=== PATIENT | male | born 1960 | race Caucasian/White ===

== ENCOUNTER 2016-11-05 23:10 | Emergency (ER) | payer OTHER ==
[~2016-11-05] VITALS: Ht 182.9 cm; Wt 85.0 kg
[~2016-11-05 23:10] MED LIST: BACT2OIN TOP; BACT800T5 PO
[2016-11-05 23:16] VITALS: BP 135/70; PULSE 91; RESP 16; TEMP 97.9; O2SAT 97
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
--- NOTE | 2016-11-06 01:10 | RADRPT ---
EXAM DATE/TIME: 11/06/2016 00:58 [place] COMPARISON: No previous studies available for comparison. INDICATIONS : Pt with laceration to nose. MEDICAL HISTORY : None. SURGICAL HISTORY : None. ENCOUNTER: Initial ACUITY: 1 day PAIN SCORE: Non-responsive. LOCATION: Bilateral nasal FINDINGS: Lateral and Mcintosh views of the nasal bones demonstrate no evidence of displaced fracture. There is no significant soft tissue swelling. The infraorbital rims are intact. CONCLUSION: Unremarkable examination of the nasal bones. There is some prominence of the suture at the base of th e nasal bone could be a tiny nondisplaced fracture, will heal without sequelae Eb Moore MD on November 06, 2016 at 1:08 Board Certified Radiologist. This report was verified electronically.
[2016-11-06] MEDS ORDERED: ACETAMINOPHEN 500 MG CPLT PO ONE (01:30)
== END 2016-11-06 01:28 ==
LOC: NEPC 23:10
DX: S00.31XA Abrasion of nose, initial encounter (principal); Y04.2XXA Assault by strike against or bumped into by another person, initial encounter
CPT/HCPCS: 70160; 99283